=== PATIENT | male | born 1940 | race Caucasian/White ===

== ENCOUNTER 2019-03-24 14:36 | Emergency (ER) | payer OTHER ==
[~2019-03-24] VITALS: Ht 167.6 cm; Wt 69.2 kg
[~2019-03-24 14:36] MED LIST: IBUP-1542 PO; LANT3I SC
[2019-03-24 14:41] VITALS: Ht 167.6 cm; Wt 69.2 kg
[2019-03-24] MEDS ORDERED: morphine 4 MG/ML VIAL IV STA (14:56)
[2019-03-24] MEDS ORDERED: IOHEXOL 300MG/ML 150 ML BTL ONE (17:00)
[2019-03-24] MEDS ORDERED: SOD CHLORIDE 0.9% 100 ML ONE (17:00)
[2019-03-24 18:09] VITALS: BP 134/65; PULSE 62; RESP 17
== END 2019-03-24 18:12 | disposition home or self-care (01) ==
LOC: E/R 14:36
DX: R10.84 Generalized abdominal pain (principal); Z79.4 Long term (current) use of insulin
CPT/HCPCS: 36415; 74177; 80053; 81001; 83690; 85025; 96374; 99285; J2270; Q9967